=== PATIENT | male | born 1960 | race Caucasian/White ===

== ENCOUNTER 2022-07-28 19:08 | Emergency (ER) | payer OTHER ==
[~2022-07-28] VITALS: Ht 167.6 cm; Wt 81.6 kg
[2022-07-29 00:09] VITALS: BP 145/84
== END 2022-07-29 00:09 | disposition home or self-care (01) ==
LOC: EDBD 19:08 → ER 19:08
DX: T17.908A Unspecified foreign body in respiratory tract, part unspecified causing other injury, initial encounter (principal); X58.XXXA Exposure to other specified factors, initial encounter
CPT/HCPCS: 71045